=== PATIENT | female | born 1950 | race Caucasian/White ===

== ENCOUNTER → 2018-06-06 | Outpatient (CLI) | payer MEDICARE, OTHER | END | disposition home or self-care (01) | LOC: CFH 12:03 | PROVIDERS: ATTEND Internal Medicine Critical Care Medicine | DX: J34.1 Cyst and mucocele of nose and nasal sinus (principal); I25.10 Atherosclerotic heart disease of native coronary artery without angina pectoris; M85.80 Other specified disorders of bone density and structure, unspecified site | CPT/HCPCS: 70490; 71250 ==

== ENCOUNTER 2019-11-26 11:45 | Outpatient (CLI) | payer MEDICARE, OTHER | END 2019-11-26 23:59 | disposition home or self-care (01) | LOC: CFH 11:45 | PROVIDERS: ATTEND Family Medicine | DX: M85.88 Other specified disorders of bone density and structure, other site (principal) | CPT/HCPCS: 77080 ==